=== PATIENT | male | born 1955 | race Caucasian/White ===

== ENCOUNTER 2021-12-01 18:37 | Emergency (ER) | payer OTHER ==
[~2021-12-01] VITALS: Ht 165.1 cm; Wt 88.0 kg
[2021-12-01 18:40] VITALS: BP 138/78
[2021-12-01] MEDS ORDERED: CYCL10TA7 MT (22:27)
[2021-12-01] MEDS ORDERED: IBUP-2029 MT (22:27)
== END 2021-12-01 22:44 | disposition home or self-care (01) ==
LOC: ER 18:37
DX: S39.012A Strain of muscle, fascia and tendon of lower back, initial encounter (principal); S16.1XXA Strain of muscle, fascia and tendon at neck level, initial encounter; E11.9 Type 2 diabetes mellitus without complications; E78.00 Pure hypercholesterolemia, unspecified; V43.53XA Car driver injured in collision with pick-up truck in traffic accident, initial encounter; Y93.89 Activity, other specified; Y92.488 Other paved roadways as the place of occurrence of the external cause
CPT/HCPCS: 72131; 99284